=== PATIENT | female | born 1965 | race Caucasian/White ===

== ENCOUNTER 2018-08-02 08:15 | Day surgery (SDC) | payer OTHER, MEDICAID ==
[~2018-08-02] VITALS: Ht 157.5 cm; Wt 84.3 kg
[~2018-08-02 08:15] MED LIST: AMLO-147 PO; HYDR-3498 PO; HYDR50TA3 PO
[2018-08-02 08:57] VITALS: Ht 157.5 cm; Wt 84.3 kg
[2018-08-02 09:03] VITALS: BP 127/59; PULSE 79; RESP 27
[2018-08-02] MEDS ORDERED: SIMVASTATIN (09:04)
--- NOTE | 2018-08-02 09:05 | PREAC ---
Date/Time of Note Date/Time of Note DATE: 08/02/18 TIME: 09:03 Anesthesia Eval and Record Evaluation Time Pre-Procedure Interview DATE: 08/02/18 TIME: 09:03 Age 53 Sex female NPO: 8 hrs Preoperative diagnosis Screening Planned procedure Colonoscopy Past Medical History Past Medical History: Includes Cardio: HTN GI: Obesity Surgery & Anesthesia Issues No known issue Meds Anticoagulation: No Beta Wayne within 24 hr: No Reason Beta Wayne not given: Pt. not on B-[place] Reported Medications Hydrocodone Bit-Acetaminophen* ([place]*) 5-325 Mg Tab, 1 TAB PO DAILY PRN for SEVERE PAIN LEVEL 7-10, TAB 09/11/14 Hydrochlorothiazide* (Hydrochlorothiazide*) 50 Mg Tab, 50 MG PO DAILY, TAB 09/11/14 Amlodipine Besylate* (Amlodipine Besylate*) 10 Mg Tablet, 10 MG PO DAILY, TAB 09/11/14 Meds reviewed: Yes Allergies Coded Allergies: No Known Allergy (Unverified , 01/11/14) Allergies Reviewed: Yes Labs/Studies Labs Reviewed: Reviewed by anesthesiologist test: N/A Pre-procedure Exam Airway: Adequate mouth opening Mallampati: Mallampati II Teeth: Normal Lung: Normal Heart: Normal ASA Physical Status ASA physical status: 2 Emergency: None Planned Anesthetic General/MAC: MAC Pre-operative Attestations Prior to commencing anesthesia and surgery, the patient was re-evaluated, there was verification of: *The patient's identity *The results of appropriate recent lab work and preoperative vital signs *The above evaluation not changing prior to induction *Anesthetic plan, risk benefits, alternative and complications discussed with patient/family; questions answered; patient/family understands, accepts and wishes to proceed. JINA RODRIGUES MD Aug 02, 2018 09:05
[2018-08-02] MEDS ORDERED: PROPOFOL 40 ML ONE (09:06)
--- NOTE | 2018-08-02 09:49 | PAC ---
Date/Time of Note Date/Time of Note DATE: 08/02/18 TIME: 09:49 Post-Anesthesia Notes Post-Anesthesia Note Last documented vital signs VSS Activity: WNL Respiratory function: WNL Cardiovascular function: WNL Mental status: Baseline Pain reasonably controlled: Yes Hydration appropriate: Yes Nausea/Vomiting absent: Yes JINA RODRIGUES MD Aug 02, 2018 09:49
[2018-08-02 10:26] VITALS: BP 111/52; PULSE 68; RESP 16
== END 2018-08-02 12:13 | disposition home or self-care (01) ==
LOC: GIL 08:15
PROVIDERS: ATTEND Internal Medicine Gastroenterology
DX: Z12.11 Encounter for screening for malignant neoplasm of colon (principal); K64.8 Other hemorrhoids; K21.0 Gastro-esophageal reflux disease with esophagitis; K29.50 Unspecified chronic gastritis without bleeding
CPT/HCPCS: 88305; 88312

== ENCOUNTER 2018-10-13 17:58 | Emergency (ER) | payer OTHER ==
[~2018-10-13] VITALS: Ht 160 cm; Wt 85.0 kg
[~2018-10-13 17:58] MED LIST changes: +CEPH-443 PO; -HYDR-3498 PO; +IBUP-1542 PO; +SIMVASTATIN
[2018-10-13 18:06] VITALS: Ht 160 cm; Wt 85.0 kg
[2018-10-13] MEDS ORDERED: ONDANSETRON (ODT) 4 MG TAB ODT STA (19:03)
[2018-10-13] MEDS ORDERED: KETOROLAC 30 MG INJ IM STA (19:03)
--- NOTE | 2018-10-13 19:35 | ERD ---
ER Documentation Chief Complaint Chief Complaint back pain today w/ vomiting/frequency HPI 53-year-old female with past medical history of hypertension, past surgical history of cholecystectomy, tubal ligation who presents with complaint of left- sided back pain and flank pain. Also with complaint of left upper quadrant abdominal discomfort. Patient also reports intermittent fevers. Had several bouts of nonbilious nonbloody vomiting. Patient is menopausal. She otherwise denies vaginal bleeding or discharge, recent illness, chest pain, shortness of breath, dyspnea or any other concerning symptoms. ROS All systems reviewed and are negative except as per history of present illness. Medications Home Meds Active Scripts Cephalexin* (Keflex*) 500 Mg Capsule, 500 MG PO BID for 7 Days, CAP Prov:AMANDA LINK PA-C 10/13/18 Ibuprofen* (Motrin*) 600 Mg Tab, 600 MG PO Q6, #30 TAB Prov:AMANDA LINK-Andre 10/13/18 Reported Medications [Simvastatin] No Conflict Check 08/02/18 Hydrochlorothiazide* (Hydrochlorothiazide*) 50 Mg Tab, 50 MG PO DAILY, TAB 09/11/14 Amlodipine Besylate* (Amlodipine Besylate*) 10 Mg Tablet, 10 MG PO DAILY, TAB 09/11/14 Allergies Allergies: Coded Allergies: No Known Allergy (Unverified , 01/11/14) PMhx/Soc History of Surgery: Yes (CHOLECYSECTOMY, TUBAL LIGATION) Anesthesia Reaction: No Hx Neurological Disorder: No Hx Respiratory Disorders: No Hx Cardiac Disorders: Yes (HYPRETENSION) Hx Psychiatric Problems: No Hx Miscellaneous Medical Probl: Yes (HYPERTENSION) Hx Alcohol Use: No Hx Substance Use: No Hx Tobacco Use: No Smoking Status: Never smoker FmHx Family History: diabetes Physical Exam Vitals Vital Signs Date Temp Pulse Resp B/P (MAP) Pulse Ox O2 O2 Flow FiO2 Time Delivery Rate 10/13/18 100.5 95 16 124/66 96 18:06 (85) Physical Exam I have reviewed the triage vital signs. Const: Well nourished, well developed, appears stated age Eyes: PERRL, no conjunctival injection HENT: NCAT, Neck supple without meningismus CV: RRR, Warm, well-perfused extremities RESP: CTAB, Unlabored respiratory effort GI: soft, tender left upper quadrant to deep palpation, mild left-sided flank pain, no rebound or guarding, non-distended, no masses MSK: No gross deformities appreciated Skin: Warm, dry. No rashes Neuro: grossly non focal Psych: Appropriate mood and affect. Result Diagram: 10/13/18191910/13/181919 Results 24 hrs Laboratory Tests Test 10/13/18 18:50 10/13/18 19:20 POC Beta HCG, Qualitative NEGATIVE White Blood Count 15.8 10^3/ul Red Blood Count 4.86 10^6/ul Hemoglobin 13.7 g/dl Hematocrit 42.0 % Mean Corpuscular Volume 86.4 fl Mean Corpuscular Hemoglobin 28.2 pg Mean Corpuscular Hemoglobin Concent 32.6 g/dl Red Cell Distribution Width 13.4 % Platelet Count 329 10^3/UL Mean Platelet Volume 9.8 fl Immature Granulocytes % 0.500 % Neutrophils % 83.9 % Lymphocytes % 10.0 % Monocytes % 5.3 % Eosinophils % 0.1 % Basophils % 0.2 % Nucleated Red Blood Cells % 0.0 /100WBC Immature Granulocytes # 0.080 10^3/ul Neutrophils # 13.3 10^3/ul Lymphocytes # 1.6 10^3/ul Monocytes # 0.8 10^3/ul Eosinophils # 0.0 10^3/ul Basophils # 0.0 10^3/ul Nucleated Red Blood Cells # 0.0 10^3/ul Urine Color YELLOW Urine Clarity SLIGHTLY CLOUDY Urine pH 7.0 Urine Specific [place] 1.013 Urine Ketones NEGATIVE mg/dL Urine Nitrite NEGATIVE mg/dL Urine Bilirubin NEGATIVE mg/dL Urine Urobilinogen NEGATIVE mg/dL Urine Leukocyte Esterase 2+ Ester/ul Urine Microscopic RBC 19 /HPF Urine Microscopic WBC 145 /HPF Urine Squamous Epithelial Cells MODERATE /HPF Urine Bacteria FEW /HPF Urine Hemoglobin 1+ mg/dL Urine Glucose NEGATIVE mg/dL Urine Total Protein NEGATIVE mg/dl Sodium Level 139 mmol/L Potassium Level 3.3 mmol/L Chloride Level 97 mmol/L Carbon Dioxide Level 31 mmol/L Anion Gap 11 Blood Urea Nitrogen 13 mg/dl Creatinine 0.64 mg/dl Est Glomerular Filtrat Rate mL/min > 60 mL/min Glucose Level 156 mg/dl Calcium Level 9.7 mg/dl Total Bilirubin 0.4 mg/dl Direct Bilirubin 0.00 mg/dl Indirect Bilirubin 0.4 mg/dl Aspartate Amino Transf (AST/SGOT) 30 IU/L Alanine Aminotransferase (ALT/SGPT) 27 IU/L Alkaline Phosphatase 123 IU/L Total Protein 8.9 g/dl Albumin 4.6 g/dl Globulin 4.30 g/dl Albumin/Globulin Ratio 1.06 Lipase 24 U/L Current Medications Medications Dose Sig/Mame Start Time Status Last (Trade) Ordered Route PRN Stop Time Admin Dose Reason Admin Ketorolac 30 mg ONCE STAT 10/13/18 DC 10/13/18 Tromethamine IM 19:03 19:15 (Toradol) 10/13/18 19:07 Ondansetron 4 mg ONCE STAT 10/13/18 DC 10/13/18 HCl (Zofran ODT 19:03 19:15 Odt) 10/13/18 19:07 Potassium 40 meq ONCE STAT 10/13/18 DC 10/13/18 Chloride PO 20:02 20:10 (Klor-Con 20) 10/13/18 20:07 Procedures/MDM 53 yo non- woman presenting with abdominal pain. Considered causes of female-specific abdominal pain unrelated to (e.g., pelvic inflammatory disease with or without tubo-ovarian abscess, Couf-Wdro-Tsuvap, etc.). Also considered causes of abdominal pain that are not gender-specific (e.g., appendicitis, volvulus, small bowel obstruction, mesenteric adenitis, acute cholecystitis/choledocholithiasis and other biliary pathology, etc.). Patient well-appearing with normal vital signs. Laboratory testing and imaging here reviewed and normal. Patient given strict return precautions for worsening pain, inability to eat/drink, fevers (temperature over 100.4F), or other concerns. Patient instructed to follow up with their primary doctor and is agreeable; all questions were answered. ED course: ultrasound unremarkable UA with evidence of infection we will treat with course of Keflex, she has no evidence possible source of infection per history and exam Labs to BC count 15k, lipase within normal limits K3.3, tested him 40 M EQ was given, patient taking p.o. without issue DISPOSITION PLAN: We discussed follow up with the patient's primary care doctor within 24 to 48 hours. Patient counseled regarding my diagnostic impression and care plan. Prior to discharge all questions answered. Pt agrees with treatment plan and understands strict return precautions. Precautionary instructions provided including instructions to return to the ER if not improving or for any worsening or changing symptoms or concerns. Disclaimer: Inadvertent spelling and grammatical errors are likely due to EHR/dictation software use and do not reflect on the overall quality of patient care. Also, please note that the electronic time recorded on this note does not necessarily reflect the actual time of the patient encounter. Departure Diagnosis: Primary Impression: Back pain Condition: Stable AMANDA LINK PA-C Oct 13, 2018 19:35
[2018-10-13] MEDS ORDERED: POTASSIUM CHLORIDE (SR) 20 MEQ TAB PO STA (20:02)
[2018-10-13 20:15] VITALS: BP 120/75; PULSE 85; RESP 16
== END 2018-10-13 20:15 | disposition home or self-care (01) ==
LOC: FTE 17:58
DX: M54.9 Dorsalgia, unspecified (principal); I10 Essential (primary) hypertension
CPT/HCPCS: 36415; 76705; 80053; 81001; 81025; 83690; 85025; 96372; 99285; J1885